=== PATIENT | male | born 1965 | race Asian ===

== ENCOUNTER 2018-12-17 05:59 | Day surgery (SDC) | payer OTHER ==
[2018-12-17] MEDS ORDERED: LACTATED RINGERS 1,000 ML IV ONE (06:54)
[2018-12-17] MEDS ORDERED: MIDAZOLAM 2 MG/2 ML VIAL IVP ONE (07:30)
[2018-12-17] MEDS ORDERED: fentaNYL 250 MCG/5 ML VIAL IVP ONE (07:30)
[2018-12-17 08:21] VITALS: BP 109/72
== END 2018-12-17 06:00 | disposition home or self-care (01) ==
LOC: SDS 05:59
PROVIDERS: ATTEND Surgery
PROC: 0DBN8ZZ Excision of Sigmoid Colon, Via Natural or Artificial Opening Endoscopic (ICD-10-PCS; principal; 2018-12-17 07:30)
DX: Z12.11 Encounter for screening for malignant neoplasm of colon (principal); D12.5 Benign neoplasm of sigmoid colon; K64.8 Other hemorrhoids; I10 Essential (primary) hypertension; E11.9 Type 2 diabetes mellitus without complications; G47.30 Sleep apnea, unspecified; J45.909 Unspecified asthma, uncomplicated; F41.0 Panic disorder [episodic paroxysmal anxiety]; F32.9 Major depressive disorder, single episode, unspecified; Z79.84 Long term (current) use of oral hypoglycemic drugs; Z79.899 Other long term (current) drug therapy; Z80.1 Family history of malignant neoplasm of trachea, bronchus and lung
CPT/HCPCS: 45380; J3010; J7120

== ENCOUNTER 2024-03-27 09:07 | Emergency (ER) | payer OTHER ==
--- NOTE | 2024-03-27 09:33 | ED Physician Documentation ---
PD HPI SYNCOPE - Stated complaint Stated Complaint: C+, PASSED OUT TWICE - Chief complaint Chief Complaint: Neuro - History obtained from History obtained from: Patient - History of Present Illness Witnessed: Unwitnessed Timing - onset: Today, Last night Duration: Seconds Preceding symptoms: Diaphoresis, Nausea / vomiting, Light headed, Generalized weakness. No: Chest pain, Dyspnea, Abdominal pain Associated symptoms: No: Headache Contributing factors: Decreased PO intake (he has had nausa, less intake though trying to drink water/fluids, cough, weakness, aches the past week, with testing positive for COVID a week ago. Generally weak. Has been feeling lightheded most of the week, and then had syncope with standing twice last evening and this morning.), Just stood up Injury occurred: No: Fell, Head injury, Neck injury Review of Systems Constitutional: reports: Chills, Myalgias, Fatigue Nose: reports: Congestion. denies: Rhinorrhea / runny nose Throat: denies: Sore throat Cardiac: reports: Chest pain / pressure (some with coughing) Respiratory: reports: Dyspnea, Cough, Wheezing GI: reports: Nausea. denies: Vomiting, Diarrhea Skin: denies: Rash PD PAST MEDICAL HISTORY - Past Medical History Past Medical History: Yes Cardiovascular: Hypertension, High cholesterol Respiratory: Asthma, Sleep apnea, CPAP use Endocrine/Autoimmune: Type 2 diabetes GI: GERD : Frequency, Kidney stones HEENT: None Psych: Depression Musculoskeletal: Gout, Chronic back pain Derm: None - Past Surgical History Past Surgical History: Yes General: Colonoscopy, EGD HEENT: Other - Present Medications Home Medications: Ambulatory Orders Medication Instructions Recorded Confirmed ALPRAZolam [Alprazolam] 0.25 mg ORAL DAILY PRN 12/17/18 12/17/18 Albuterol Sulfate [Proair 1 inh INH DAILY PRN 12/17/18 12/17/18 Respiclick] Aspirin 81 mg ORAL DAILY 12/17/18 12/17/18 Chlorthalidone 25 mg ORAL DAILY 12/17/18 12/17/18 Fluticasone [Flonase] 1 spray NS DAILY PRN 12/17/18 12/17/18 Gabapentin [Neurontin] 300 mg ORAL BID 12/17/18 12/17/18 Loratadine [Claritin] 10 mg ORAL DAILY 12/17/18 12/17/18 Losartan [Cozaar] 25 mg ORAL DAILY 12/17/18 12/17/18 Omeprazole 20 mg ORAL BID 12/17/18 12/17/18 Sertraline [Zoloft] 50 mg ORAL DAILY 12/17/18 12/17/18 Simvastatin 20 mg ORAL DAILY 12/17/18 12/17/18 allopurinoL [Allopurinol] 300 mg ORAL BID 12/17/18 12/17/18 metFORMIN [Glucophage] 1,000 mg ORAL BID 12/17/18 12/17/18 traZODone [Desyrel] 150 mg ORAL DAILY 12/17/18 12/17/18 Albuterol Sulf [Ventolin Hfa 2 puffs INH QID #1 each 03/27/24 Inhaler] Ondansetron Odt [Zofran] 4 mg TL Q6H PRN #10 tablet 03/27/24 - Allergies Allergies/Adverse Reactions: Allergies Allergy/AdvReac Type Severity Reaction Status Date / Time lisinopril AdvReac Intermediate Unknown Verified 03/27/24 09:14 - Social History Does the pt smoke?: No Smoking Status: Never smoker Does the pt drink ETOH?: No Does the pt have substance abuse?: No - Immunizations Immunizations are current?: Yes - POLST Patient has POLST: No PD ED PE NORMAL - Vitals Vital signs reviewed: Yes (BP initially low here in ED c/w postural lightheaded. ) - General General: Alert and oriented X 3, No acute distress, Well developed/nourished - HEENT HEENT: Atraumatic - Neck Neck: Supple, no meningeal sign, No adenopathy - Cardiac Cardiac: RRR, No murmur, No rub - Respiratory Respiratory: No respiratory distress. No: Clear bilaterally (some exp wheezing noted end expiratory. No extra effort of breathing. ) - Abdomen Abdomen: Soft, Non tender - Extremities Extremities: No edema, No calf tenderness / cord - Neuro Neuro: Alert and oriented X 3, No motor deficit, Normal speech Results - Vitals Vitals: Vital Signs - 24 hr 03/27/24 03/27/24 03/27/24 13:00 13:08 14:00 Temperature Heart Rate 62 66 Heart Rate [ 63 Sitting] Heart Rate [ 64 Standing] Heart Rate [ 60 Supine] Respiratory 26 H 16 Rate Blood Pressure 114/63 Blood Pressure 110/75 [Sitting] Blood Pressure 114/63 [Standing] Blood Pressure 119/72 [Supine] O2 Saturation 97 03/27/24 14:36 Temperature 36.8 C Heart Rate 78 Heart Rate [ Sitting] Heart Rate [ Standing] Heart Rate [ Supine] Respiratory 16 Rate Blood Pressure 132/86 H Blood Pressure [Sitting] Blood Pressure [Standing] Blood Pressure [Supine] O2 Saturation 98 Oxygen O2 Source Room air - EKG (time done) 09:37 EKG releavant findings:: EKG personally interpreted by author of this note. Relevant findings are: Rate: Rate (enter#) (63) Rhythm: NSR [place]: Normal Intervals: Normal DC QRS: Normal Ischemia: Normal ST segments. No: ST elevation c/w ischemia, ST depression - Labs Labs: Laboratory Tests 03/27/24 03/27/24 03/27/24 09:55 09:55 09:55 WBC 4.9 RBC 4.99 Hgb 14.3 Hct 43.4 MCV 87.0 MCH 28.7 MCHC 32.9 RDW 12.2 Plt Count 159 MPV 10.3 Neut # (Auto) 3.9 Lymph # (Auto) 0.8 L [place] # (Auto) 0.3 Eos # (Auto) 0.0 Baso # (Auto) 0.0 Absolute Nucleated RBC 0.00 Nucleated RBC % 0.0 VBG pH VBG pCO2 VBG pO2 VBG HCO3 VBG Total CO2 VBG O2 Saturation VBG Base Excess Sodium 135 Potassium 3.8 Chloride 96 L Carbon Dioxide 29 Anion Gap 10.0 BUN 17 Creatinine 1.1 Estimated GFR (MDRD) 69 L Glucose 149 H Calcium 8.8 Magnesium 2.2 Total Bilirubin 1.0 AST 24 ALT 23 Alkaline Phosphatase 52 Troponin I High Sens 5.4 B-Natriuretic Peptide Total Protein 7.6 Albumin 4.2 Globulin 3.4 Albumin/Globulin Ratio 1.2 Lipase 11 03/27/24 03/27/24 09:55 09:55 WBC RBC Hgb Hct MCV MCH MCHC RDW Plt Count MPV Neut # (Auto) Lymph # (Auto) [place] # (Auto) Eos # (Auto) Baso # (Auto) Absolute Nucleated RBC Nucleated RBC % VBG pH 7.358 VBG pCO2 51.0 VBG pO2 31.0 VBG HCO3 28.0 VBG Total CO2 29.6 H VBG O2 Saturation 58.6 L VBG Base Excess 1.6 Sodium Potassium Chloride Carbon Dioxide Anion Gap BUN Creatinine Estimated GFR (MDRD) Glucose Calcium Magnesium Total Bilirubin AST ALT Alkaline Phosphatase Troponin I High Sens B-Natriuretic Peptide 19 Total Protein Albumin Globulin Albumin/Globulin Ratio Lipase - Rads (name of study) chest xray Relevant Findings:: Prelim report reviewed (patchy bibabilar atelectasis), EMP independent interpretation of test (bilateral findings most suggestive viral pnuemonitis or atelectasis. ) PD Medical Decision Making - ED course Complexity details: reviewed results, re-evaluated patient (feeling much better with IV fluids, antinauseant, toradol. No signs of cardiac cause of syncope with normal heart rhythm, trop, BNP and heart size on CXR. Presume volume depletion. Vitals improved with normal posturals after IV fluids. ), considered differential (has had COVID with stated less intake and general weakness. Having postural lightheaded through the week and now fainted twice with standing. Low BP noted initially here. Presume volume depleted but will check lytes/CXR for pneumonia, ECG/trop for cardiomyopathy, etc. ), d/w patient Departure - Departure Disposition: Home, Self Care Clinical Impression: COVID, Postural dizziness with near syncope, Volume depletion Condition: Stable Record reviewed to determine appropriate education?: Yes Instructions: ED Viral Syndrome Prescriptions: Albuterol Sulf [Ventolin Hfa Inhaler] 2 puffs INH QID #1 each Ondansetron Odt [Zofran] 4 mg TL Q6H PRN #10 tablet PRN Reason: Nausea / Vomiting Comments: Your blood pressure was initially low but did improve with IV fluids. It would seem like you are volume depleted related to the recent illness and presumably last oral intake. In addition when you are ill such as with COVID, your general blood vessels and adrenaline do not respond as promptly so the effect of being lightheaded with standing occurs more easily as your blood pressure does not respond as well. Your basic blood test otherwise did not show any notable abnormality. Your blood sugar was actually 149 here. Kidney function is reasonable. Your main electrolytes and blood count are good. No signs of abnormal heart process without any signs of heart failure or heart attack/injury. Your chest x-ray does not show any obvious pneumonia. There is little patchy areas on your x-ray consistent with a viral/COVID process. I would suggest having you use a inhaler 2 puffs 4 times a day to help improve aeration through the lungs and therefore better breathing and less coughing. Ondansetron if needed for nausea to improve general intake. Continue with your usual medications. Small frequent fluids and bland food initially and progress as tolerated. I sent prescriptions to your preferred pharmacy. Your system will probably be sluggish and responding in the near few days as well still recovering from the COVID. Get up slowly and sat for a moment before standing. Follow-up with your primary care return to the ER if not improving well over the next several days to week or if worsening generally. Forms: PCP List Discharge Date/Time: 03/27/24 14:36
[2024-03-27 10:08] LABS: HCT - HEMATOCRIT 43.4 % (42.0-52.0); HGB - HEMOGLOBIN 14.3 g/dL (14.0-18.0); LYMPHOCYTES # (AUTO) 0.8 10^3/uL (1.5-3.5); LYMPHOCYTES % (AUTO) 15.5 %; MEAN CORPUSCULAR HEMOGLOBIN 28.7 pg (27.0-31.0); MEAN CORPUSCULAR HGB CONC 32.9 g/dL (32.0-36.0); MEAN PLATELET VOLUME 10.3 fL (7.4-11.4); MONOCYTES # (AUTO) 0.3 10^3/uL (0.0-1.0); MONOCYTES % (AUTO) 5.7 %; NEUTROPHILS # (AUTO) 3.9 10^3/uL (1.5-6.6); NEUTROPHILS % (AUTO) 78.6 %; PLT - PLATELET COUNT 159 10^3/uL (130-450); RED BLOOD COUNT 4.99 10^6/uL (4.70-6.10); RED CELL DISTRIBUTION WIDTH 12.2 % (12.0-15.0); WHITE BLOOD COUNT 4.9 x10^3/uL (4.8-10.8)
[2024-03-27 10:11] LABS: VBG BASE EXCESS 1.6 mmol/L (-2 - +2); VBG OXYGEN SATURATION 58.6 % (60-80); VBG PH 7.358 (7.31-7.41); VBG TOTAL CO2 29.6 mmol/L (24-29)
[2024-03-27 10:26] LABS: ALBUMIN 4.2 g/dL (3.2-5.5); ALBUMIN/GLOBULIN RATIO 1.2 (1.0-2.2); CALCIUM 8.8 mg/dL (8.5-10.3); CREATININE 1.1 mg/dL (0.6-1.3); POTASSIUM 3.8 mmol/L (3.5-4.5); TOTAL PROTEIN 7.6 g/dL (6.4-8.9)
[2024-03-27 10:30] LABS: TROPONIN I HIGH SENSITIVITY 5.4 ng/L (2.3-19.7)
--- NOTE | 2024-03-27 10:51 | XRAY Report ---
PROCEDURE: Chest 1V INDICATIONS: cough, dyspnea TECHNIQUE: One view of the chest was acquired. COMPARISON: None. FINDINGS: Surgical changes and devices: None. Lungs and pleura: No pleural effusions or pneumothorax. Submaximal inspiration with patchy bibasilar atelectasis. Mediastinum: Mediastinal contours appear normal. Heart size is normal. Bones and chest wall: No suspicious bony lesions. Overlying soft tissues appear unremarkable. IMPRESSION: Patchy bibasilar atelectasis. Reviewed by: Marquez Smith MD on 03/27/2024 10:50 AM PDT Approved by: Marquez Smith MD on 03/27/2024 10:50 AM PDT Station ID: [id number]
[2024-03-27] MEDS: KETOROLAC 15 MG/ML VIAL IVP STA ×2 (11:25→11:41)
[2024-03-27] MEDS: FAMOTIDINE 20 MG/2 ML VIAL IVP STA ×2 (11:25→11:41)
[2024-03-27] MEDS: ONDANSETRON 4 MG/2 ML VIAL IVP STA ×2 (11:26→11:42)
[2024-03-27] MEDS: SODIUM CHLORIDE 0.9% 1,000 ML IV STA (11:26)
[2024-03-27] MEDS: LACTATED RINGERS 1,000 ML IV STA (11:42)
[2024-03-27] MEDS ORDERED: ALBUTEROL 1 PUFF INH STA (13:39)
[2024-03-27 14:52] VITALS: BP 132/86; O2SAT 98
== END 2024-03-27 14:36 | disposition home or self-care (01) ==
LOC: ED 09:07
DX: U07.1 COVID-19 (principal); R55 Syncope and collapse; E86.9 Volume depletion, unspecified; I95.9 Hypotension, unspecified
CPT/HCPCS: 36415; 71045; 80053; 82803; 83690; 83735; 83880; 84484; 85025; 93005; 94640; 96361; 96374; 96375; 99284; J7120